=== PATIENT | female | born 1945 | race Caucasian/White ===

== ENCOUNTER 2018-03-12 06:56 | Observation (INO) | payer MEDICARE, BC ==
[~2018-03-12] VITALS: Ht 160 cm; Wt 61.5 kg
[~2018-03-12 06:56] MED LIST: ASPI325T24 PO; CALTTAB2 PO; CIPR500T2 PO; DIGO.125 PO; FURO8SOL PO; PRIN5TAB PO; RALO1TAB13 PO; TAB-TAB PO; TOPR100T15 PO; VYTO10TA35 PO
--- NOTE | 2018-03-12 07:07 | PD ---
HPI Chief Complaint: Suspected seizure Time Seen by Provider: 07:01 Travel History International Travel<30 days: No Contact w/Intl Traveler<30days: No Traveled to known affect area: No History of Present Illness HPI 73-year-old female is brought by paramedics. She is not quite sure what happened to her. She is a little bit confused. Her says that he was awoken by her having diffuse shaking this morning. He says it lasted for 2-3 minutes. He describes tonic-clonic movements of the arms and legs. When the movement stopped she was breathing deeply and lethargic. She has woken up somewhat since then though she remains a little bit confused. She has never had a seizure. Her father had epilepsy. 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 She takes aspirin 325 mg daily. She does not drink alcohol. She does not smoke. She says she feels a little bit short of breath now. She is on metoprolol and lisinopril for high blood pressure. She is not complaining of headache. She was incontinent of urine PFSH Past Medical History Asthma: No Autoimmune Disease: No Depression: Yes (AFTER MITRAL VALVE REPLACEMENT) High Cholesterol: Yes COPD: No Diminished Hearing: No Hypertension: Yes Sleep Apnea: No Past Surgical History Cardiac Surgery: Yes (MITRAL VALVE REPLACEMENT 2003) Hysterectomy: Yes Other Surgery: Yes (MELANOMA REMOVED FROM RIGHT UPPER BREAST) Social History Alcohol Use: No Tobacco Use: No Substance Use: No Allergies-Medications (Allergen,Severity, Reaction): Coded Allergies: erythromycin base (Unverified Adverse Reaction, Severe, VOMITS, 05/30/17) Reported Meds & Prescriptions Reported Meds & Active Scripts Active Reported Calcium 600 with Vitamin D (Calcium Carbonate-Cholecalciferol) 600-400 mg-Unit Tab 1 Tab PO DAILY Aspirin 325 Mg Tab 325 Mg PO DAILY Lasix (Furosemide) 20 Mg Tab 20 Mg PO DAILY Vytorin (Ezetimibe-Simvastatin) 10-40 Mg Tab 1 Tab PO HS Metoprolol Tartrate 100 Mg Tab 100 Mg PO DAILY Lisinopril 10 Mg Tab 10 Mg PO DAILY Review of Systems General / Constitutional: No: Fever, Chills Eyes: No: Diploplia, Blurred Vision HENT: No: Headaches Cardiovascular: No: Chest Pain or Discomfort, Palpitations Respiratory: No: Cough, Shortness of Breath Gastrointestinal: No: Vomiting, Diarrhea Genitourinary: Positive: Incontinence, No: Urgency, Frequency Musculoskeletal: No: Myalgias, Arthralgias Skin: No Rash Neurologic: Positive: Seizures Psychiatric: No: Anxiety, Depression Hematologic/Lymphatic: No: Easy Bruising Physical Exam Narrative GENERAL: Well-developed female SKIN: Focused skin assessment warm/dry. HEAD: Atraumatic. Normocephalic. EYES: Pupils equal and round. No scleral icterus. No injection or drainage. ENT: No nasal bleeding or discharge. Mucous membranes pink and moist. NECK: Trachea midline. No JVD. CARDIOVASCULAR: Regular rate and rhythm. No murmur appreciated. RESPIRATORY: No accessory muscle use. Clear to auscultation. Breath sounds equal bilaterally. GASTROINTESTINAL: Abdomen soft, non-tender, nondistended. Hepatic and splenic margins not palpable. MUSCULOSKELETAL: No obvious deformities. No clubbing. No cyanosis. No edema. NEUROLOGICAL: Awake and alert. No obvious cranial nerve deficits. Motor grossly within normal limits. Normal speech. When she first arrived she was not oriented to date though she was when checked later PSYCHIATRIC: Appropriate mood and affect; insight and judgment normal. Data Data Last Documented VS Vital Signs Date Time Temp Pulse Resp B/P (MAP) Pulse Ox O2 Delivery O2 Flow Rate FiO2 03/12/18 07:35 Room Air 03/12/18 07:31 97.8 79 16 159/69 (99) 95 Orders Orders Electrocardiogram (03/12/18 07:02) Complete Blood Count With Diff (03/12/18 07:02) Comprehensive Metabolic Panel (03/12/18 07:02) Troponin I (03/12/18 07:02) Prothrombin Time / Inr (Pt) (03/12/18 07:02) Act Partial Throm Time (Ptt) (03/12/18 07:02) Magnesium (Mg) (03/12/18 07:02) Thyroid Stimulating Hormone (03/12/18 07:02) Chest, Single Ap (03/12/18 07:02) Ct Brain W/O Iv Contrast(Rout) (03/12/18 07:02) B-Type Natriuretic Peptide (03/12/18 07:07) Urinalysis - C+S If Indicated (03/12/18 07:07) Ondansetron Inj (Zofran Inj) (03/12/18 07:30) Admit Order (Ed Use Only) (03/12/18 08:23) Labs Laboratory Tests Test 03/12/18 07:25 03/12/18 08:12 White Blood Count 5.4 TH/MM3 Red Blood Count 4.36 MIL/MM3 Hemoglobin 13.2 GM/DL Hematocrit 38.6 % Mean Corpuscular Volume 88.4 FL Mean Corpuscular Hemoglobin 30.2 PG Mean Corpuscular Hemoglobin Concent 34.2 % Red Cell Distribution Width 13.3 % Platelet Count 154 TH/MM3 Mean Platelet Volume 8.8 FL Neutrophils (%) (Auto) 64.3 % Lymphocytes (%) (Auto) 30.8 % Monocytes (%) (Auto) 3.9 % Eosinophils (%) (Auto) 0.7 % Basophils (%) (Auto) 0.3 % Neutrophils # (Auto) 3.5 TH/MM3 Lymphocytes # (Auto) 1.7 TH/MM3 Monocytes # (Auto) 0.2 TH/MM3 Eosinophils # (Auto) 0.0 TH/MM3 Basophils # (Auto) 0.0 TH/MM3 CBC Comment DIFF FINAL Differential Comment Prothrombin Time 10.1 SEC Prothromb Time International Ratio 1.0 RATIO Activated Partial Thromboplast Time 21.7 SEC Blood Urea Nitrogen 16 MG/DL Creatinine 0.88 MG/DL Random Glucose 148 MG/DL Total Protein 7.2 GM/DL Albumin 3.9 GM/DL Calcium Level 8.9 MG/DL Magnesium Level 2.1 MG/DL Alkaline Phosphatase 45 U/L Aspartate Amino Transf (AST/SGOT) 25 U/L Alanine Aminotransferase (ALT/SGPT) 31 U/L Total Bilirubin 0.6 MG/DL Sodium Level 141 MEQ/L Potassium Level 4.2 MEQ/L Chloride Level 107 MEQ/L Carbon Dioxide Level 24.5 MEQ/L Anion Gap 10 MEQ/L Estimat Glomerular Filtration Rate 63 ML/MIN Troponin I LESS THAN 0.02 NG/ML B-Type Natriuretic Peptide 78 PG/ML Thyroid Stimulating Hormone 3rd Gen 3.340 uIU/ML Urine Collection Type VOIDED Urine Color YELLOW Urine Turbidity CLEAR Urine pH 6.0 Urine Specific [place] 1.025 Urine Protein 30 mg/dL Urine Glucose (UA) NEG mg/dL Urine Ketones NEG mg/dL Urine Occult Blood MOD Urine Nitrite NEG Urine Bilirubin NEG Urine Urobilinogen 0.2 MG/DL Urine Leukocyte Esterase NEG Urine RBC 1-3 /hpf Urine WBC 0-2 /hpf Urine Squamous Epithelial Cells 0-3 /hpf Urine Hyaline Casts 6-9 /lpf Urine Mucus MOD /lpf Microscopic Urinalysis Comment CULT NOT INDICATED MDM Medical Decision Making Medical Screen Exam Complete: Yes Emergency Medical Condition: Yes Medical Record Reviewed: Yes Differential Diagnosis Differential includes seizure, dysrhythmia Narrative Course EKG shows sinus rhythm with occasional PVCs. Chest x-ray shows cardiomegaly. CT of the brain is negative. Hemoglobin 13 with a white count of 5.4. BNP is 78. Troponin less than 0.02. Patient is complaining of some chest fullness Diagnosis Primary Impression: New onset seizure Admitting Information Admitting Physician Requests: Admit Eldon Meadows MD March 12, 2018 07:07
[2018-03-12] MEDS ORDERED: ONDANSETRON HCL 4 MG/2 ML VIAL IV PUSH ONE (07:30)
[2018-03-12 07:31] VITALS: BP 159/69; PULSE 79; RESP 16; TEMP 97.8; O2SAT 95
--- NOTE | 2018-03-12 07:43 | RADRPT ---
EXAM DATE: 03/12/2018 7:21 AM EDT AGE/SEX: 73 years / Female INDICATIONS: Chest pain. CLINICAL DATA: This is the patient's initial encounter. Patient reports that signs and symptoms have been present for 1 day and indicates a pain score of 3/10. MEDICAL/SURGICAL HISTORY: None. None. COMPARISON: . FINDINGS: A single AP view of the chest demonstrates the lungs to be symmetrically aerated without evidence of mass, infiltrate or effusion. Mild cardiomegaly. Status post CABG. The cardiomediastinal contours ar e unremarkable. Osseous structures are intact. CONCLUSION: 1. Cardiomegaly. 2. CABG. Electronically signed by: Ricardo Clarke MD 03/12/2018 7:41 AM EDT
[2018-03-12 07:46] LABS: CHLORIDE 107 MEQ/L (98-107); SODIUM (NA) 141 MEQ/L (136-145)
[2018-03-12 07:47] LABS: AUTOMATED NEUTROPHIL # 3.5 TH/MM3 (1.8-7.7); BASOPHIL % 0.3 % (0.0-2.0); EOSINOPHIL % 0.7 % (0.0-4.0); HEMATOCRIT 38.6 % (35.0-46.0); HEMOGLOBIN 13.2 GM/DL (11.6-15.3); LYMPH % 30.8 % (9.0-44.0); LYMPHOCYTE # 1.7 TH/MM3 (1.0-4.8); MEAN CELL VOLUME 88.4 FL (80.0-100.0); MEAN CORPUSCULAR HEMOGLOBIN 30.2 PG (27.0-34.0); MEAN CORPUSCULAR HGB CONC 34.2 % (32.0-36.0); MEAN PLATELET VOLUME 8.8 FL (7.0-11.0); MONO % 3.9 % (0.0-8.0); MONOCYTE # 0.2 TH/MM3 (0-0.9); NEUT % 64.3 % (16.0-70.0); PLATELET COUNT 154 TH/MM3 (150-450); RED BLOOD COUNT 4.36 MIL/MM3 (4.00-5.30); RED CELL DISTRIBUTION WIDTH 13.3 % (11.6-17.2); WHITE BLOOD COUNT 5.4 TH/MM3 (4.0-11.0)
--- NOTE | 2018-03-12 07:48 | RADRPT ---
EXAM DATE: 03/12/2018 7:42 AM EDT AGE/SEX: 73 years / Female INDICATIONS: Possible seizure. Altered mental status. CLINICAL DATA: This is the patient's initial encounter. Patient reports that signs and symptoms have been present for 1 day and indicates a pain score of 0/10. MEDICAL/SURGICAL HISTORY: Hypertension. Melanoma. Hysterectomy. Mitral valve replacement. RADIATION DOSE: 49.84 cardiopulmonary OU" (mGy) COMPARISON: . TECHNIQUE: CT of the head without contrast. Using automated exposure control and adjustment of the mA and/or kV according to patient size, radiation dose was kept as low as reasonably achievable to ob tain optimal diagnostic quality images. FINDINGS: Cerebrum: The ventricles are normal for age. No evidence of midline shift, mass lesion, hemorrhage or acute infarction. No extraaxial fluid collections are seen. Posterior Fossa: The cerebellum and brainstem are intact. The 4th ventricle is midline. The cerebe llopontine angle is unremarkable. Extracranial: The visualized portion of the orbits is intact. Skull: The calvaria is intact. No evidence of skull fracture. CONCLUSION: 1. No acute intracranial abnormality Electronically signed by: Ricardo Clarke MD 03/12/2018 7:47 AM EDT
[2018-03-12 07:49] LABS: PROTHROMBIN TIME - PATIENT 10.1 SEC (9.8-11.6)
[2018-03-12 07:50] LABS: ALBUMIN 3.9 GM/DL (3.4-5.0); BICARBONATE 24.5 MEQ/L (21.0-32.0); BLOOD UREA NITROGEN 16 MG/DL (7-18); CALCIUM 8.9 MG/DL (8.5-10.1); GLUCOSE,RANDOM 148 MG/DL (74-106); MAGNESIUM 2.1 MG/DL (1.5-2.5)
[2018-03-12 07:53] LABS: ALT (GPT) 31 U/L (10-53); AST (GOT) 25 U/L (15-37)
[2018-03-12 07:54] LABS: CREATININE 0.88 MG/DL (0.50-1.00); GLOMERULAR FILTRATION RATE 63 ML/MIN (>89)
[2018-03-12 07:55] LABS: TOTAL BILIRUBIN ADULT 0.6 MG/DL (0.2-1.0); TOTAL PROTEIN 7.2 GM/DL (6.4-8.2)
[2018-03-12 07:56] LABS: ALKALINE PHOSPHATASE 45 U/L (45-117)
[2018-03-12] MEDS ORDERED: LISI10TA3 PO (07:58)
[2018-03-12] MEDS ORDERED: METO100T PO (07:58)
[2018-03-12] MEDS ORDERED: CALC1TAB87 PO (07:58)
[2018-03-12] MEDS ORDERED: VYTO10TA9 PO (07:58)
[2018-03-12] MEDS ORDERED: FURO1TAB62 PO (07:58)
[2018-03-12] MEDS ORDERED: ASPI-183 PO (07:58)
[2018-03-12 07:59] LABS: TROPONIN I LESS THAN 0.02 NG/ML (0.02-0.05)
[2018-03-12 08:21] LABS: BILIRUBIN, URINE NEG (NEG); BLOOD, URINE MOD (NEG); GLUCOSE,URINE NEG (NEG); KETONE, URINE NEG (NEG); NITRITE,URINE NEG (NEG); URINE COLOR YELLOW (YELLW/STRAW); URINE LEUKOCYTE ESTERASE NEG (NEG)
[2018-03-12 08:26] VITALS: BP 141/75; PULSE 76; RESP 16; O2SAT 95
[2018-03-12] MEDS ORDERED: RESP: ALBUTEROL 2.5 MG/IPRATROPIUM 0.5 MG NEB (PRN) NEB (08:30)
[2018-03-12] MEDS ORDERED: ACETAMINOPHEN 325 MG TAB PO PRN (08:30)
[2018-03-12] MEDS ORDERED: SODIUM CHLORIDE 0.9% FLUSH 10 ML FLUSH IV FLUSH PRN (08:30)
[2018-03-12] MEDS ORDERED: ONDANSETRON HCL 4 MG/2 ML VIAL IV PUSH PRN (08:30)
[2018-03-12 08:34] LABS: MUCUS URINE MOD /lpf (OCC)
[2018-03-12 08:35] LABS: SQUAMOUS EPITHELIAL CELL URINE 0-3 /hpf (0-5); WBC, URINE 0-2 /hpf (0-5)
[2018-03-12] MEDS ORDERED: SODIUM CHLORIDE 0.9% FLUSH 10 ML FLUSH IV FLUSH SCH (09:00)
[2018-03-12] MEDS ORDERED: ASPIRIN 325 MG TAB PO SCH (09:00)
[2018-03-12] MEDS ORDERED: METOPROLOL TARTRATE 100 MG TAB PO SCH (09:00)
[2018-03-12] MEDS ORDERED: FUROSEMIDE 20 MG TAB PO SCH (09:00)
[2018-03-12] MEDS ORDERED: LISINOPRIL 10 MG TAB PO SCH (09:00)
[2018-03-12 09:19] VITALS: BP 138/91; PULSE 66; RESP 16; O2SAT 98
[2018-03-12 09:42] VITALS: BP 125/60; PULSE 66; RESP 18; TEMP 98.9; O2SAT 97
--- NOTE | 2018-03-12 11:17 | EKG ---
Date Performed: 03/12/2018 Time Performed: 07:01:31 PTAGE: 73 years EKG: Sinus rhythm WITH OCCASIONAL VENTRICULAR PREMATURE COMPLEXES POSSIBLE LEFT ATRIAL ENLARGEMENT BORDERLINE ECG PREVIOUS TRACING : 12/08/1999 11.24 Compared to previous tracing, PVSs are less frequent, heart rate has increased. DOCTOR: Bruno Lynch Interpretating Date/Time 03/12/2018 11:16:24
--- NOTE | 2018-03-12 11:38 | HHI.HP ---
HPI Service [facility] Primary Care Physician Sander Teran MD Admission Diagnosis NEW ONSET SEIZURE Diagnoses: (1) New onset seizure Chief Complaint: Seizure activity Travel History International Travel<30 Days: No Contact w/Intl Traveler <30 Da: No Traveled to Known Affected Are: No History of Present Illness 73-year-old female with past medical history hypertension, hyperlipidemia was brought by EMS for evaluation of mental status change along with tonic-clonic seizure as described by patient's . Per patient's , he was awoken before 6 AM and observed patient to have some tonic-clonic movements of her arms and lower extremities which lasted 2-3 minutes. Apparently patient was breathing deeply and confused. He was postictal and had bladder accidents. Patient reported some nausea however and without any emesis. Patient had no recollection. She states yesterday morning, she suffered from ocular migraine rated 2 out of 10 in intensity and relieved with Advil. She currently denies any chest pain or shortness of breath. She denies any prior history of seizure activity. She denies any febrile episode of upper respiratory infection. Patient vitals on exam were unremarkable other than minimally elevated BP. Head CT did not reveal any intra-cranial abnormality and a chest x-ray was negative. She also has an negative UA. Review of Systems Except as stated in HPI: all other systems reviewed are Neg Past Family Social History Past Medical History Ocular migraine Depression: Yes (AFTER MITRAL VALVE REPLACEMENT) High Cholesterol: Yes Hypertension: Yes Past Surgical History Cardiac Surgery: Yes (MITRAL VALVE REPLACEMENT 2003) Other Surgery: Yes (MELANOMA REMOVED FROM RIGHT UPPER BREAST) Total abdominal hysterectomy Reported Medications Calcium 600 with Vitamin D (Calcium Carbonate-Cholecalciferol) 600-400 mg-Unit Tab 1 Tab PO DAILY Aspirin 325 Mg Tab 325 Mg PO DAILY Lasix (Furosemide) 20 Mg Tab 20 Mg PO DAILY Vytorin (Ezetimibe-Simvastatin) 10-40 Mg Tab 1 Tab PO HS Metoprolol Tartrate 100 Mg Tab 100 Mg PO DAILY Lisinopril 10 Mg Tab 10 Mg PO DAILY Allergies: Coded Allergies: erythromycin base (Unverified Adverse Reaction, Severe, VOMITS, 05/30/17) Family History Family history positive for CAD, hypertension, CVA Social History Alcohol Use: No Tobacco Use: No Substance Use: No Physical Exam Vital Signs Vital Signs Date Time Temp Pulse Resp B/P (MAP) Pulse Ox O2 Delivery O2 Flow Rate FiO2 03/12/18 10:02 18 03/12/18 09:42 98.9 66 18 125/60 (81) 97 03/12/18 09:34 03/12/18 09:19 66 16 138/91 (107) 98 Room Air 03/12/18 08:26 76 16 141/75 (97) 95 Room Air 03/12/18 07:35 Room Air 03/12/18 07:31 97.8 79 16 159/69 (99) 95 Physical Exam GENERAL: This is a well-nourished, well-developed patient, in no apparent distress. SKIN: No rashes, ecchymoses or lesions. Cool and dry. HEAD: Atraumatic. Normocephalic. No temporal or scalp tenderness. EYES: Pupils equal round and reactive. Extraocular motions intact. No scleral icterus. No injection or drainage. ENT: Nose without bleeding, purulent drainage or septal hematoma. Throat without erythema, tonsillar hypertrophy or exudate. Uvula midline. Airway patent. NECK: Trachea midline. No JVD or lymphadenopathy. Supple, nontender, no meningeal signs. CARDIOVASCULAR: Regular rate and rhythm without murmurs, gallops, or rubs. RESPIRATORY: Clear to auscultation. Breath sounds equal bilaterally. No wheezes , rales, or rhonchi. GASTROINTESTINAL: Abdomen soft, non-tender, nondistended. No hepato-splenomegaly , or palpable masses. No guarding. MUSCULOSKELETAL: Extremities without clubbing, cyanosis, or edema. No joint tenderness, effusion, or edema noted. No calf tenderness. Negative Homans sign bilaterally. NEUROLOGICAL: Awake and alert. Cranial nerves II through XII intact. Motor and sensory grossly within normal limits. Five out of 5 muscle strength in all muscle groups. Normal speech. Laboratory Laboratory Tests Test 03/12/18 07:25 03/12/18 08:12 03/12/18 08:48 White Blood Count 5.4 Red Blood Count 4.36 Hemoglobin 13.2 Hematocrit 38.6 Mean Corpuscular Volume 88.4 Mean Corpuscular Hemoglobin 30.2 Mean Corpuscular Hemoglobin Concent 34.2 Red Cell Distribution Width 13.3 Platelet Count 154 Mean Platelet Volume 8.8 Neutrophils (%) (Auto) 64.3 Lymphocytes (%) (Auto) 30.8 Monocytes (%) (Auto) 3.9 Eosinophils (%) (Auto) 0.7 Basophils (%) (Auto) 0.3 Neutrophils # (Auto) 3.5 Lymphocytes # (Auto) 1.7 Monocytes # (Auto) 0.2 Eosinophils # (Auto) 0.0 Basophils # (Auto) 0.0 CBC Comment DIFF FINAL Differential Comment Prothrombin Time 10.1 Prothromb Time International Ratio 1.0 Activated Partial Thromboplast Time 21.7 Blood Urea Nitrogen 16 Creatinine 0.88 Random Glucose 148 Total Protein 7.2 Albumin 3.9 Calcium Level 8.9 Magnesium Level 2.1 Alkaline Phosphatase 45 Aspartate Amino Transf (AST/SGOT) 25 Alanine Aminotransferase (ALT/SGPT) 31 Total Bilirubin 0.6 Sodium Level 141 Potassium Level 4.2 Chloride Level 107 Carbon Dioxide Level 24.5 Anion Gap 10 Estimat Glomerular Filtration Rate 63 Troponin I LESS THAN 0.02 B-Type Natriuretic Peptide 78 Thyroid Stimulating Hormone 3rd Gen 3.340 Urine Collection Type VOIDED Urine Color YELLOW Urine Turbidity CLEAR Urine pH 6.0 Urine Specific [place] 1.025 Urine Protein 30 Urine Glucose (UA) NEG Urine Ketones NEG Urine Occult Blood MOD Urine Nitrite NEG Urine Bilirubin NEG Urine Urobilinogen 0.2 Urine Leukocyte Esterase NEG Urine RBC 1-3 Urine WBC 0-2 Urine Squamous Epithelial Cells 0-3 Urine Hyaline Casts 6-9 Urine Mucus MOD Microscopic Urinalysis Comment CULT NOT INDICATED Ammonia LESS THAN 10 Result Diagram: 03/12/1872403/12/18724 Imaging Last Impressions Head CT 03/12/18701 Signed Impressions: CONCLUSION: 1. No acute intracranial abnormality Chest X-Ray 03/12/18701 Signed Impressions: CONCLUSION: 1. Cardiomegaly. 2. CABG. Septic Shock Reassessment Septic shock perfusion: reassessment completed Caprini VTE Risk Assessment Caprini VTE Risk Assessment: Mod/High Risk (score >= 2) Caprini Risk Assessment Model Point Value = 1 Point Value = 2 Point Value = 3 Point Value = 5 Age 41-60 Minor surgery BMI > 25 kg/m2 Swollen legs Varicose veins or History of unexplained or recurrent spontaneous Oral contraceptives or hormone replacement Sepsis (< 1 month) Serious lung disease, including pneumonia (< 1 month) Abnormal pulmonary function Acute myocardial infarction Congestive heart failure (< 1 month) History of inflammatory bowel disease Medical patient at bed rest Age 61-74 Arthroscopic surgery Major open surgery (> 45 min) Laparoscopic surgery (> 45 min) Malignancy Confined to bed (> 72 hours) Immobilizing plaster cast Central venous access Age >= 75 History of VTE Family history of VTE Factor V Leiden Prothrombin [id number] Lupus anticoagulant Anticardiolipin antibodies Elevated serum homocysteine Heparin-induced thrombocytopenia Other congenital or acquired thrombophilia Stroke (< 1 month) Elective arthroplasty Hip, pelvis, or leg fracture Acute spinal cord injury (< 1 month) Prophylaxis Regimen Total Risk Factor Score Risk Level Prophylaxis Regimen 0-1 Low Early ambulation 2 Moderate Order ONE of the following: *Sequential Compression Device (SCD) *Heparin 5000 units SQ BID 3-4 Higher Order ONE of the following medications: *Heparin 5000 units SQ TID *Enoxaparin/Lovenox 40 mg SQ daily (WT < 150 kg, CrCl > 30 mL/min) *Enoxaparin/Lovenox 30 mg SQ daily (WT < 150 kg, CrCl > 10-29 mL/min) *Enoxaparin/Lovenox 30 mg SQ BID (WT < 150 kg, CrCl > 30 mL/min) AND/OR *Sequential Compression Device (SCD) 5 or more Highest Order ONE of the following medications: *Heparin 5000 units SQ TID (Preferred with Epidurals) *Enoxaparin/Lovenox 40 mg SQ daily (WT < 150 kg, CrCl > 30 mL/min) *Enoxaparin/Lovenox 30 mg SQ daily (WT < 150 kg, CrCl > 10-29 mL/min) *Enoxaparin/Lovenox 30 mg SQ BID (WT < 150 kg, CrCl > 30 mL/min) AND *Sequential Compression Device (SCD) Assessment and Plan Problem List: (1) New onset seizure ICD Code: R56.9 - Unspecified convulsions Status: Acute Assessment and Plan 73-year-old female with New onset seizure Patient with known history of ocular migraine Head CT noted and reviewed by me without any intracranial abnormality Chest x-ray noted and reviewed by me without any cardiopulmonary disease Check EEG, osmolality, Dilantin level, prolactin, ammonia level, RPR Secondary to patient's prior history of mitral valve repair, will check 2D echo as well as carotid ultrasound Consult neurology, and will hold on antiepileptic drug into patient seen by neurology Consider LP Start Ativan as needed and place seizure precaution History of hyperlipidemia, hypertension, mitral valve prolapse and repair Resume outpatient medications DVT prophylaxis: Bilateral SCDs Code Status Full code Discussed Condition With Patient, ED physician Ricardo Adam MD March 12, 2018 11:38
[2018-03-12 12:00] VITALS: BP 115/55; PULSE 62; RESP 17; TEMP 96.8; O2SAT 95
--- NOTE | 2018-03-12 15:18 | MB ---
cc: Mitchel Herrera MD DATE: 03/12/2018 HISTORY OF PRESENT ILLNESS: A 73-year-old, right-handed woman with hypertension, hypercholesterolemia, mitral valve replacement, she takes 325 aspirin a day, melanoma in 2006, not currently active, ocular migraines, which she will get loss of vision in the central vision and a headache that she gets about 3 a year, that has been going on for many years, had one yesterday. For the last 4 months about once a month, she has had episodes when she is taking a nap or going to bed. Sometimes when she is starting to fall asleep and sometimes when she wakes up, she will have a fear sensation. Seems to start at the top of her head and go down to her abdomen, very fear, almost like a panicky type thing. Then, last night her about 6 a.m. this morning, he woke up to find her in a grand mal seizure. She did have incontinence and bit her tongue. She has a mild headache today. She denies any history of odd smells, taste, dj vu, woke up, wet the bed or bit her tongue before this. Her father; however, had epilepsy, started in his 50s. REVIEW OF SYSTEMS: She denies any history of diabetes, known atrial fibrillation, CABG, renal, hepatic, pulmonary disease, thyroid disease, lupus, ulcer, cancer, prior seizure, stroke, loss periods of time. SOCIAL HISTORY: Not a smoker or drinker. Lives with . FAMILY HISTORY: Positive for cancer. Negative for seizure. Positive for Parkinson's disease and stroke in her mother. Positive for epilepsy in her father. MEDICATIONS: She tells me she does not take Wellbutrin or tramadol. She takes calcium, 325 of aspirin, Lasix, Vytorin, metoprolol, lisinopril. ALLERGIES: ERYTHROMYCIN. PHYSICAL EXAMINATION: VITAL SIGNS: She is afebrile, 62, 17, 115/55. There were no carotid bruits nor vertebral bruits. HEART: Regular rhythm. I do not detect a murmur. NEUROLOGIC: Pupils are equal. Visual fraser are full. Extraocular movements intact without nystagmus. Face is symmetric with normal sensation. Tongue was midline. There is no drift. Normal strength in upper and lower extremities bilaterally. DTRs trace throughout. Toes downgoing bilaterally. Pinprick is intact throughout. She is not ataxic on [id number]. Speech is fluent, not aphasic. LABORATORY DATA: CBC is normal. UA is negative. Basic metabolic profile was normal. Glucose 148. LFTs, ammonia, troponin, TSH normal. CAT scan of the brain read as negative. Chest x-ray: Cardiomegaly. 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 I am going to check an MRI of the brain, and with a history of vision loss with the migraines, we will check an MRA of the neck and [place] of [place] to make sure there is no vertebrobasilar disease. She could go home if those are negative tonight and she can call my office and we can schedule an EEG outpatient. I am going to prescribe her some Keppra, but she is not to take until after the EEG. I also told her not to drive, take a bath, swim alone, other dangerous activities for 6 months. I note, her EKG showed sinus rhythm here. She should also followup with a secondary school teacher with a history of valve and possibly some cardiomegaly on the chest x-ray. She could get an outpatient heart monitor at her secondary school teacher. I would recommend that too, and possibly an echo if one has not been done recently. MD KENN Cgae/TAMIKO , 02:49 PM , 03:17 PM
[2018-03-12] MEDS ORDERED: GADODIAMIDE PF 287 MG/ML 20 ML VIAL (for RAD MRI) IVCONTRAST ONE (15:20)
--- NOTE | 2018-03-12 15:59 | RADRPT ---
EXAM DATE: 03/12/2018 3:47 PM EDT AGE/SEX: 73 years / Female INDICATIONS: . New onset seizure. CLINICAL DATA: This is the patient's initial encounter. Patient reports that signs and symptoms have been present for 1 day and indicates a pain score of 0/10. MEDICAL/SURGICAL HISTORY: Carcinoma, skin cancer. Hypercholesterolemia. Hypertension. Hystere ctomy. Heart valve replacement. COMPARISON: No prior [place] exams available for comparison. TECHNIQUE: 3D [id number] MRA was performed. Source images, multiplanar STS MIP, and 3D volum e MIP reconstructions were reviewed. FINDINGS: There is excellent visualization of the major intracranial arteries out to the second-order branch ve ssels. There is no evidence for aneurysm, vessel truncation or stenosis, and no evidence for vascula r malformation. CONCLUSION: 1. Examination within normal limits for age. Linear signal abnormality in the distal right internal carotid artery is believed to be artifactual. Electronically signed by: Anant Cobos MD 03/12/2018 3:58 PM EDT
--- NOTE | 2018-03-12 16:02 | RADRPT ---
EXAM DATE: 03/12/2018 3:58 PM EDT AGE/SEX: 73 years / Female INDICATIONS: . New onset seizure. CLINICAL DATA: This is the patient's initial encounter. Patient reports that signs and symptoms have been present for 1 day and indicates a pain score of 0/10. MEDICAL/SURGICAL HISTORY: Carcinoma, skin cancer. Hypercholesterolemia. Hypertension. Hystere ctomy. Heart valve replacement COMPARISON: No prior [facility] exams available for comparison. TECHNIQUE: Multiplanar, multisequence examination of the brain was performed without and with 20cc ml Omniscan (gadodiamide) contrast as a single exam dose. FINDINGS: There is no intracranial mass or shift. No hydrocephalus. No abnormal enhancing lesions are present. No abnormal extra-axial fluid collections. Normal appearance of the sella. Minimal white matter ische monserrat changes. CONCLUSION: 1. Minimal white matter ischemic changes. No acute findings. No recent infarct or mass effect. Electronically signed by: Anant Cobos MD 03/12/2018 4:01 PM EDT
--- NOTE | 2018-03-12 16:24 | HHI.PR ---
Addendum to Inpatient Note Addendum Reason: Additional Documentation Additional Information Discharge patient to home Condition on discharge: Improved Regular Diet as tolerated Ad Xuan activity Rx written: see EMR Follow-up with primary care physician in 1 week Follow-up with Neurology in 1 -2 weeks Ricardo Adam MD March 12, 2018 16:24
--- NOTE | 2018-03-12 16:39 | RADRPT ---
EXAM DATE: 03/12/2018 4:16 PM EDT AGE/SEX: 73 years / Female INDICATIONS: . New onset seizure. CLINICAL DATA: This is the patient's initial encounter. Patient reports that signs and symptoms have been present for 1 day and indicates a pain score of 0/10. MEDICAL/SURGICAL HISTORY: Carcinoma, skin cancer. Hypercholesterolemia. Hypertension. Hystere ctomy. heart valve replacement. COMPARISON: No prior [facility] exams available for comparison. TECHNIQUE: 20cc ml Omniscan (gadodiamide) contrast infused MRA (single exam dose) of the extracrani al circulation was performed using a neurovascular coil. Postprocessing was performed, including rot ating sub-volume maximum intensity projections of each carotid artery, rotating full-volume maximum i ntensity projections of both carotid arteries, sagittal and coronal sliding thin-slab reformations of each carotid artery, and left oblique sliding thin-slab reformation through the aortic arch to inclu de the origin of the arch branch vessels. FINDINGS: Great vessel origins are patent. Both common carotid artery and internal carotid arteries are patent. There is a moderate stenosis proximal left external carotid artery. Right external carotid artery is patent. Proximal subclavian arteries are patent. Both vertebral arteries are patent within the neck. CONCLUSION: 1. No hemodynamically significant stenosis in the common carotid or internal carotid arteries bilate rally. Moderate stenosis proximal left external carotid artery. Percent stenosis is calculated using the diameter of the stenotic region over the diameter of the nor mal distal internal carotid artery Electronically signed by: Anant Cobos MD 03/12/2018 4:38 PM EDT
[2018-03-12] MEDS ORDERED: EZETIMIBE 10 MG TAB PO SCH (21:00)
[2018-03-12] MEDS ORDERED: PRAVASTATIN SOD 40 MG TAB PO SCH (21:00)
[2018-03-12] MEDS ORDERED: NON-FORMULARY DRUG (Ezetimibe-Simvastatin (Vytorin) 1 TAB) PO SCH (21:00)
== END 2018-03-12 17:08 | disposition home or self-care (01) ==
LOC: PHED 06:56 → PHEDA 08:24 → PH3A 09:39
PROVIDERS: ADMIT Hospitalist; ATTEND Hospitalist
DX: G40.409 Other generalized epilepsy and epileptic syndromes, not intractable, without status epilepticus (principal); R56.9 Unspecified convulsions; G40.89 Other seizures; G43.109 Migraine with aura, not intractable, without status migrainosus; I51.7 Cardiomegaly; I10 Essential (primary) hypertension; E78.5 Hyperlipidemia, unspecified; R41.82 Altered mental status, unspecified; F32.9 Major depressive disorder, single episode, unspecified; Z95.2 Presence of prosthetic heart valve; Z85.820 Personal history of malignant melanoma of skin; Z82.49 Family history of ischemic heart disease and other diseases of the circulatory system; Z82.3 Family history of stroke; Z79.899 Other long term (current) drug therapy
CPT/HCPCS: 70450; 70544; 70548; 70553; 71045; 80053; 81001; 82140; 83735; 83880; 83930; 84443; 84484; 85025; 85610; 85730; 86592; 93005; 97161; 99285; A9579; G0378; G8987; G8988; J2405